=== PATIENT | male | born 1985 | race Caucasian/White ===

== ENCOUNTER 2017-02-03 15:35 | Emergency (ER) | payer OTHER ==
[~2017-02-03] VITALS: Ht 180.3 cm; Wt 117.0 kg
[~2017-02-03 15:35] MED LIST: /PROM25SU; ALLE25CA PO; ALLERGY MED OTC; BACL10TA2 OR; BUSP10TA78 PO; CITA20TA4 PO; HYDR-3716 PO; HYDR25TA6 OR; LYRI200C; LYRI200C PO; METO25TA2 PO; MONT10TA2 PO; MULT1TAB8 PO; NORCOBULK PO; PHENERGAN PO; PRIL20CA PO; PROV90AE INH; TALWIN PO
[2017-02-03] MEDS ORDERED: ACETAMINOPHEN 325 MG TAB PO ONE (17:15)
--- NOTE | 2017-02-03 18:08 | REP ---
CT BRAIN WITHOUT CONTRAST: HISTORY: Pain after trauma. COMPARISON: None. TECHNIQUE: 4.5 mm contiguous transaxial sections were obtained from the skull base to the cerebral convexities with thin cuts through the posterior fossa without the administration of intravenous contrast. FINDINGS: The ventricles and sulci are consistent with the patient's age. There are no extra-axial fluid collections. There is no mass effect. The deep cerebral white matter is consistent with the patient's age. The orbital and petrous structures , cerebellopontine angles, and posterior fossa are unremarkable. The sella turcica, cavernous, and paracavernous structures are essentially unremarkable. The visualized portions of the paranasal sinuses and mastoid air cells are clear. Images of the skull base show no gross abnormality. IMPRESSION: Essentially unremarkable CT examination of the brain. Signed by Clarence Devi DO 02/03/2017 06:43 P
--- NOTE | 2017-02-03 18:12 | REP ---
CT CERVICAL SPINE WITHOUT CONTRAST: HISTORY: Pain in the neck after trauma. COMPARISON: None. Vertebral body height and alignment is within normal limits. The disc spaces are symmetric and well-maintained. The facet joints are well-aligned bilaterally. There is no evidence of a cervical spine fracture. There is no abnormal paraspinal soft tissue swelling. The imaged lung willams are within normal limits. IMPRESSION: No fracture. Findings within normal limits. Signed by Clarence Devi DO 02/03/2017 06:43 P
--- NOTE | 2017-02-03 18:29 | REP ---
LUMBOSACRAL SPINE: HISTORY: Pain after trauma. COMPARISON: 10/15/2015 FINDINGS: Five views of the lumbosacral spine show no acute fracture, dislocation or subluxation. The intervertebral disc spaces are symmetric and well maintained. There is no spondylolysis or spondylolisthesis. The pedicles are intact bilaterally and there is no destructive osseous lesion. No significant change from the prior exam. IMPRESSION: Unremarkable lumbosacral spine series. Signed by Clarence Devi DO 02/03/2017 06:44 P
--- NOTE | 2017-02-03 18:30 | REP ---
OS CALCIS: HISTORY: Pain after trauma. PRIORS: None. FINDINGS: No acute fracture or destructive osseous lesion. There is a small retrocalcaneal heel spur. Signed by Clarence Devi DO 02/03/2017 06:44 P
--- NOTE | 2017-02-03 18:31 | REP ---
CHEST, TWO VIEWS: HISTORY: Pain after trauma. COMPARISON: Portable exam of 08/15/2016 FINDINGS: The superior mediastinal structures are midline. The cardiac silhouette is unremarkable in size, shape, and position. The diaphragmatic surfaces of the lungs are regular, and the costophrenic angles are clear. The pulmonary willams are clear. The imaged osseous structures are intact. IMPRESSION: There is no acute cardiopulmonary disease. Signed by Clarence Devi DO 02/03/2017 06:44 P
--- NOTE | 2017-02-03 18:31 | REP ---
RIGHT FOOT: HISTORY: Pain after trauma. COMPARISON: None. FINDINGS: The joint spaces are symmetric and relatively well maintained. There is no evidence of acute fracture or destructive osseous lesion. IMPRESSION: Negative. Signed by Clarence Devi DO 02/03/2017 06:44 P
[2017-02-03] MEDS ORDERED: MOTR200T44 PO (19:08)
[2017-02-03] MEDS ORDERED: ROBA500T PO (19:08)
[2017-02-03] MEDS ORDERED: NORCOTAB PO (19:08)
[2017-02-03 19:52] VITALS: BP 132/74
== END 2017-02-03 19:53 | disposition home or self-care (01) ==
LOC: M ED 17:18
DX: S00.93XA Contusion of unspecified part of head, initial encounter (principal); S93.601A Unspecified sprain of right foot, initial encounter; S20.219A Contusion of unspecified front wall of thorax, initial encounter; V49.40XA Driver injured in collision with unspecified motor vehicles in traffic accident, initial encounter; Y92.410 Unspecified street and highway as the place of occurrence of the external cause; Y93.89 Activity, other specified; Y99.8 Other external cause status; M54.2 Cervicalgia; M54.5 Low back pain; Z79.899 Other long term (current) drug therapy; J45.909 Unspecified asthma, uncomplicated

== ENCOUNTER → 2017-04-06 | Outpatient (CLI) | payer OTHER ==
[~2017-04-06] MED LIST changes: +MOTR200T44 PO; +NORCOTAB PO; +ROBA500T PO
--- NOTE | 2017-04-06 15:47 | REP ---
MRI brain without contrast: History: Head injury due to trauma. Increased headaches. . Comparison study: Comparison head CT study February 03, 2017. Technique: Axial and sagittal imaging planes are utilized for T1 and T2-weighted scans. Sequences include spin-echo, fast spin echo, FLAIR, and diffusion weighted sequences. MRI findings: No bony calvarial lesion is seen. Craniocervical junction and upper cervical cord are normal in appearance. There is no MR evidence of significant paranasal sinus disease. No intraorbital abnormality is seen. The lateral, third, and fourth ventricles are normal in size and position. Aponte-white differentiation pattern is intact above and below the tentorium. There is no evidence of intracranial hemorrhage. No mass, infarction, extra-axial fluid collection or midline shift is seen. No abnormal white matter lesion is seen. Impression: Negative noncontrast brain MRI study. Signed by Jose A Carcamo MD 04/06/2017 03:38 P
== END ==
LOC: M RAD 14:01
PROVIDERS: ATTEND Nurse Practitioner Family
DX: S09.90XD Unspecified injury of head, subsequent encounter (principal); Y92.9 Unspecified place or not applicable; Y93.9 Activity, unspecified; Y99.8 Other external cause status; X58.XXXD Exposure to other specified factors, subsequent encounter

== ENCOUNTER → 2017-06-08 | Outpatient (CLI) | payer OTHER ==
--- NOTE | 2017-06-08 14:46 | PFTRPT ---
Tech: Tracie COLLAZO RRT Age: 32 Sex: Male Race: Height: 71.00 Inches Weight: 250.00 Lbs BSA: 2.32 Diagnosis: J45.909 PULMONARY FUNCTION REPORT ORDERING PROVIDER: Caitlin Martin NP DATE OF SERVICE: 06/08/17 SPIROMETRY: Pre and post bronchodilator study of excellent technical quality. The forced vital capacity is reduced. The FEV1 is in proportion. The obstructive index is, therefore, normal. FLOW VOLUME LOOP: The expiratory limb of the flow volume loop suggests some nonspecific flow rate limitation. LUNG VOLUMES: The total lung capacity is normal. The residual volume is generally in proportion. DIFFUSION CAPACITY: The diffusion capacity is normal. HEMOGLOBIN: No hemoglobin is available for correction. AIRWAY MECHANICS: Airways resistance is mildly elevated with a concomitant decrease in airway conductance. IMPRESSION: Nonspecific flow rate limitation. Please correlate clinically. MTDD
== END ==
LOC: M CARPUL 13:13
PROVIDERS: ATTEND Nurse Practitioner Family
DX: J45.909 Unspecified asthma, uncomplicated (principal)

== ENCOUNTER → 2017-09-01 | Outpatient (CLI) | payer OTHER ==
[2017-09-01 15:04] LABS: BASO # 0.1 10^3/uL (0.0-0.2); BASO % 0.7 % (0.0-1.0); EOS # 0.1 10^3/uL (0.0-0.50); EOS % 1.9 % (0.0-3.0); IMMATURE GRANULOCYTE % 0.3 % (0-0); LYMPH # 1.9 10^3/uL (1.5-4.5); LYMPH % 25.5 % (24.0-44.0); MEAN CORPUSCULAR HEMOGLOBIN 29.3 pg (27.0-33.0); MEAN CORPUSCULAR HGB CONC 33.6 g/dl (32.0-36.5); MONO # 1.3 10^3/uL (0.0-0.8); MONO % 17.6 % (0.0-5.0); PLATELET COUNT, AUTOMATED 216 10^3/uL (150-450); RED CELL DISTRIBUTION WIDTH 13.2 % (11.5-14.5); WHITE BLOOD COUNT 7.4 10^3/uL (4.0-10.0)
[2017-09-01 15:35] LABS: ANION GAP 6 MEQ/L (8-16); BLOOD UREA NITROGEN 16 MG/DL (7-18); CALCIUM LEVEL 9.3 MG/DL (8.5-10.1); CARBON DIOXIDE LEVEL 29 MEQ/L (21-32); CHLORIDE LEVEL 103 MEQ/L (98-107); CREATININE FOR GFR 1.13 MG/DL (0.70-1.30); GLOMERULAR FILTRATION RATE > 60.0 (>60); GLUCOSE, FASTING 86 MG/DL (70-105); POTASSIUM SERUM 4.2 MEQ/L (3.5-5.1); SODIUM LEVEL 138 MEQ/L (136-145)
--- NOTE | 2017-09-02 02:25 | REP ---
Clinical: Dyspnea. History of asthma . Comparison: 02/03/2017 . Technique: PA and lateral. Findings: The mediastinum and cardiac silhouette are normal. The lung willams are clear and without acute consolidation, effusion, or pneumothorax. The skeletal structures are intact and normal. Impression: 1. No acute cardiopulmonary process. Signed by Milo Bonner MD 09/02/2017 02:17 A
[2017-09-02 10:51] LABS: CONTROL LINE MONO RF C INT CTR LINE PRESENT
== END ==
LOC: M LAB 14:29
PROVIDERS: ATTEND Nurse Practitioner Family
DX: J45.901 Unspecified asthma with (acute) exacerbation (principal)

== ENCOUNTER → 2020-03-26 | Outpatient (CLI) | payer OTHER ==
[~2020-03-26] MED LIST changes: -CITA20TA4 PO; +CITA20TA6 PO; +HYDR-3715 PO; -NORCOTAB PO
== END ==
LOC: M LABSMTC 13:33
PROVIDERS: ATTEND Family Medicine
DX: Z20.828 Contact with and (suspected) exposure to other viral communicable diseases (principal)
CPT/HCPCS: C8903; U0003